=== PATIENT | male | born 1945 | race Caucasian/White ===

== ENCOUNTER 2017-12-05 07:17 | Inpatient (IN) | payer MEDICARE, OTHER ==
[2017-12-05] MEDS ORDERED: Magnesium Hydroxide LIQ* 30 ML UDC PO PRN (15:53)
[2017-12-05] MEDS ORDERED: Senna TAB PO PRN (15:53)
[2017-12-05] MEDS: CMC: Pravastatin (NF) 20 MG TAB PO SCH (17:21)
[2017-12-05] MEDS: Acetaminophen TAB* 325 MG PO PRN (17:22)
[2017-12-05] MEDS: Enoxaparin(*) 40 MG/0.4 ML SYR SUBCUT SCH (20:14)
[2017-12-05] MEDS: Docusate CAP* 100 MG PO SCH (20:15)
[2017-12-05] MEDS: oxyCODONE SR TAB(*) 10 MG TAB.SR PO SCH (21:18)
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
[2017-12-06] MEDS: oxyCODONE TAB* 5 MG TAB PO PRN ×3 (03:12→17:52)
[2017-12-06 05:18] LABS: ABS Basophils 0 10^3/ul (0-0.2); ABS Eosinophils 0.3 10^3/ul (0-0.6); ABS Monocytes 0.5 10^3/ul (0-0.8); ABS Neutrophils 5.3 10^3/ul (1.5-7.7); ABS Nucleated RBC 0 10^3/ul; Eosinophil % 4.3 % (0-6); Hematocrit 35 % (42-52); Hemoglobin 11.9 g/dl (14.0-18.0); Lymphocyte % 14.1 % (25-47); Mean Corpuscular HGB Conc 34 g/dl (31-36); Mean Corpuscular Hemoglobin 33 pg (27-31); Mean Corpuscular Volume 97 fL (80-94); Mean Platelet Volume 7.4 um3 (7.4-10.4); Nucleated Red Blood Cells % 0; Platelet Count 285 10^3/ul (150-450); Red Blood Count 3.62 10^6/ul (4.00-5.40); Red Cell Distribution Width 13 % (10.5-15); White Blood Count 7.1 10^3/ul (3.5-10.8)
[2017-12-06 05:35] LABS: EGFR Non-African American 109.7 (>60)
[2017-12-06] MEDS: Acetaminophen TAB* 325 MG PO PRN (06:24)
[2017-12-06] MEDS: Docusate CAP* 100 MG PO SCH ×2 (08:15→19:56)
[2017-12-06] MEDS: Aspirin EC TAB* 81 MG TAB.EC PO SCH (08:15)
[2017-12-06] MEDS: oxyCODONE SR TAB(*) 10 MG TAB.SR PO SCH ×2 (08:16→19:55)
[2017-12-06] MEDS: CMC: Pravastatin (NF) 20 MG TAB PO SCH (17:15)
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
[2017-12-06] MEDS: Enoxaparin(*) 40 MG/0.4 ML SYR SUBCUT SCH (19:56)
[2017-12-07] MEDS: Acetaminophen TAB* 325 MG PO PRN (05:31)
[2017-12-07] MEDS: Aspirin EC TAB* 81 MG TAB.EC PO SCH (09:04)
[2017-12-07] MEDS: oxyCODONE SR TAB(*) 10 MG TAB.SR PO SCH ×2 (09:04→21:29)
[2017-12-07] MEDS: Docusate CAP* 100 MG PO SCH ×2 (09:04→20:08)
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
[2017-12-07] MEDS: CMC: Pravastatin (NF) 20 MG TAB PO SCH (17:27)
[2017-12-07] MEDS: Enoxaparin(*) 40 MG/0.4 ML SYR SUBCUT SCH (20:08)
[2017-12-07] MEDS: Amoxicillin/Clavulanate TAB* 875 MG PO SCH (20:08)
[2017-12-08] MEDS: Acetaminophen TAB* 325 MG PO PRN ×2 (03:39→20:03)
[2017-12-08 06:04] LABS: ABS Basophils 0 10^3/ul (0-0.2); ABS Eosinophils 0.2 10^3/ul (0-0.6); ABS Lymphocytes 0.8 10^3/ul (1.0-4.8); ABS Monocytes 0.7 10^3/ul (0-0.8); ABS Neutrophils 5.7 10^3/ul (1.5-7.7); ABS Nucleated RBC 0 10^3/ul; Eosinophil % 2.8 % (0-6); Hematocrit 35 % (42-52); Lymphocyte % 10.5 % (25-47); Mean Corpuscular HGB Conc 34 g/dl (31-36); Mean Corpuscular Hemoglobin 33 pg (27-31); Mean Corpuscular Volume 97 fL (80-94); Nucleated Red Blood Cells % 0; Platelet Count 316 10^3/ul (150-450); Red Blood Count 3.61 10^6/ul (4.00-5.40); Red Cell Distribution Width 13 % (10.5-15); White Blood Count 7.4 10^3/ul (3.5-10.8)
[2017-12-08] MEDS: Aspirin EC TAB* 81 MG TAB.EC PO SCH (08:33)
[2017-12-08] MEDS: Docusate CAP* 100 MG PO SCH ×2 (08:33→21:14)
[2017-12-08] MEDS: oxyCODONE SR TAB(*) 10 MG TAB.SR PO SCH ×2 (08:33→21:13)
[2017-12-08] MEDS: Amoxicillin/Clavulanate TAB* 875 MG PO SCH ×2 (08:33→21:14)
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
[2017-12-08] MEDS: CMC: Pravastatin (NF) 20 MG TAB PO SCH (16:52)
[2017-12-08] MEDS: Enoxaparin(*) 40 MG/0.4 ML SYR SUBCUT SCH (20:03)
[2017-12-09 05:32] VITALS: BP 162/91
[2017-12-09] MEDS: Amoxicillin/Clavulanate TAB* 875 MG PO SCH (08:10)
[2017-12-09] MEDS: oxyCODONE SR TAB(*) 10 MG TAB.SR PO SCH (08:11)
[2017-12-09] MEDS: Aspirin EC TAB* 81 MG TAB.EC PO SCH (08:11)
[2017-12-09] MEDS: Docusate CAP* 100 MG PO SCH (08:11)
--- NOTE | 2017-12-10 02:51 | DS ---
CC: Dr. Merrick Ventura * DISCHARGE SUMMARY: DATE OF ADMISSION: 12/05/17 DATE OF DISCHARGE: 12/09/17 DISCHARGE DIAGNOSES: 1. Fracture, left scapula. 2. Fracture, multiple ribs on the left including ribs 2, 3, 4, 5, and possibly 6 and 7 and on the right ribs 3rd and 4th. 3. Pneumonia, left lung. 4. Left pneumothorax. 5. Minor traumatic brain injury. 6. Attention deficit disorder. HISTORY OF ILLNESS AND HOSPITAL COURSE: For complete history of the events leading up to his rehab stay, please see the history and physical dictated by me on 12/05/17. While on the rehab unit, Javon complained of a cough. On the evening of 12/06/17, he was complaining of some trouble breathing and his oxygen saturations had dropped to the high 80s to low 90s. A chest x-ray was ordered, which showed a left lower lobe pneumonia. He was started on Augmentin. The following morning, he felt much better. The patient will continue on Augmentin after discharge for 8 more days. The patient's pain was well managed with OxyContin and oxycodone. The patient did have some mild constipation, which he used laxatives to deal with. Otherwise, the patient was seen by both Physical and Occupational Therapy and made good gains with both disciplines. With physical therapy at the time of admission, the patient required contact guard for transfer, contact guard to ambulate 500 feet. With occupational therapy, he was contact guard for toilet transfers. He required moderate assist for upper and lower body dressing and mini assist for bathing, contact guard for toileting. By the time of discharge, he was independent in most activities. He still required assistance to get a shirt on and to button his pants. Otherwise, he was independent in ambulating and independent with most of his activities of daily living. The patient was discharged to home on 12/09/17. DISCHARGE DIET: Regular vegan. DISCHARGE MEDICATIONS: 1. Augmentin 875 mg twice daily for 8 days. 2. Aspirin 81 mg daily. 3. Oxycodone 5 mg every 4 hours as needed. 4. OxyContin 10 mg every 12 hours. 5. Pravachol 10 mg at 5.00 p.m. daily. 6. Senokot 2 tablets at bedtime. 7. Colace 100 mg twice a day. 8. Milk of magnesia 30 cc every 6 hours as needed. SERVICES AFTER DISCHARGE: The patient will not start physical therapy until his orthopedic surgeon, Dr. Woodard, feels that he is ready to begin outpatient physical therapy. He did not require any home services. FOLLOWUP: Follow up with Dr. Rod Woodard on 12/20/17. He will also follow up with primary care doctor, Dr. Merrick Ventura. [id number]/[facility] #: [id number] [facility]
== END 2017-12-09 11:30 | disposition home or self-care (01) | DRG 860 ==
LOC: PMRU 14:22
PROVIDERS: ADMIT Physical Medicine & Rehabilitation; ATTEND Physical Medicine & Rehabilitation
PROC: F07Z5ZZ Bed Mobility Treatment (ICD-10-PCS; principal; 2017-12-05)
PROC: F07Z9ZZ Gait Training/Functional Ambulation Treatment (ICD-10-PCS; 2017-12-05)
PROC: F07Z8ZZ Transfer Training Treatment (ICD-10-PCS; 2017-12-05)
PROC: F08Z0ZZ Bathing/Showering Techniques Treatment (ICD-10-PCS; 2017-12-05)
PROC: F08Z1ZZ Dressing Techniques Treatment (ICD-10-PCS; 2017-12-05)
PROC: F08Z3ZZ Feeding/Eating Treatment (ICD-10-PCS; 2017-12-05)
DX: S22.43XD Multiple fractures of ribs, bilateral, subsequent encounter for fracture with routine healing (principal); J18.9 Pneumonia, unspecified organism; S42.102D Fracture of unspecified part of scapula, left shoulder, subsequent encounter for fracture with routine healing; V49.88XD Car occupant (driver) (passenger) injured in other specified transport accidents, subsequent encounter; S06.9X9D Unspecified intracranial injury with loss of consciousness of unspecified duration, subsequent encounter; I48.91 Unspecified atrial fibrillation; F98.8 Other specified behavioral and emotional disorders with onset usually occurring in childhood and adolescence; N40.0 Benign prostatic hyperplasia without lower urinary tract symptoms; Z79.82 Long term (current) use of aspirin; Z79.899 Other long term (current) drug therapy
CPT/HCPCS: 36415; 71046; 80053; 85025; A9270-GY; J1650

== ENCOUNTER 2018-01-15 08:10 | Emergency (ER) | payer OTHER ==
--- OUTSIDE RECORDS SUMMARY | 2018-01-15 08:14 | XMS REPORT ---
:1945 External Reference #:[id number] Author Organization [facility] Address [address] [place] [address] [place] [address] Phone [phone] Care Team Providers Name Role Phone Merrick Ventura MD Care Team Information Bike Technician Unavailable Merrick Ventura MD Primary Care Physician Unavailable Payers Type Date Identification Numbers Payment Provider Subscriber Health Maintenance Policy Number: Medicare Blue Ppo Javon Robins [facility] (O) [id number] Group Number: [id number] [address] [address] PayID: [id number] NOEMI Lee [id number] Workers Onset: Policy Number: Teo Nguyen Compensation [id number] Robins Group Number: [id number] [address] [address] Group Name: [place] [address] PayID: [id number] Problems Description No Active Problems Family History Date Family Member(s) Problem(s) Comments General No Current Problems Social History Type Date Description Comments Lives With Spouse Occupation [employer] ETOH Use Drinks 2 Alcoholic Beverages Per Week Smoking Patient has never smoked Exercise Type/Frequency Exercises regularly General Hx Text Lives in [facility], works at [employer] Allergies, Adverse Reactions, Alerts Date Description Reaction Status Severity Comments 11/26/2012 Doxycycline active GI upset Medications Medication Date Status Form Strength Qnty SIG Indications Ordering Provider Aspirin Ec Active Tablets DR 81mg 1 by Unknown 000 mouth every day Pravastatin Active 10mg 1 tablet Unknown Sodium 000 po daily Lecithin Soya Active Granules 1 tbsp Unknown 000 in blend drink daily Dmae 00/00/0 Active 130mg 2 tablet Unknown 000 po daily Am Brain Essense Active 2 tablet Unknown 000 po daily Am No Active Hx Unknown Medications 015 - 015 Adderall Hx Tablets 20mg 60tabs 1 po bid Unknown 000 - 015 Strattera Hx Capsules 60mg 1 po qd Unknown 000 - 015 Vital Signs Date Vital Result Comment 12/18/2017 Height 71 inches 5'11" Weight 177.50 lb Heart Rate 70 /min BP Systolic 124 mmHg BP Diastolic 62 mmHg Respiratory Rate 16 /min Body Temperature 98.3 F Pain Level 3 BMI (Body Mass Index) 24.8 kg/m2 09/23/2014 Height 71 inches 5'11" Weight 181.12 lb with sandals Heart Rate 66 /min BP Systolic Sitting 128 mmHg La reg cuff BP Diastolic Sitting 80 mmHg La reg cuff BP Systolic Standing 122 mmHg La reg cuff BP Diastolic Standing 80 mmHg La reg cuff Respiratory Rate 16 /min BMI (Body Mass Index) 25.3 kg/m2 Ejection Fraction 55-60% date 07/07/14 11/26/2012 Height 71 inches 5'11" Weight 173.00 lb Heart Rate 68 /min BP Systolic 124 mmHg BP Diastolic 80 mmHg Body Temperature 98.5 F BMI (Body Mass Index) 24.1 kg/m2 Results Description No Information Procedures Date CPT Code Description Status 09/23/2014 74289 EKG Tracing & Interpretation Completed 07/08/2014 80476 Stress ECHO Interpretation/Report Hospital Completed 07/08/2014 99967 Treadmill Interp/Report Only Completed 07/08/2014 51437 Stress Test Supervsn W/Out I/R Completed 07/07/2014 42931 ECHO Transthorasic Realtime 2D W Doppler & Color Flow Completed Hosp 07/07/2014 37282 EKG, Interpretation Only Completed Encounters Type Date Location Provider CPT E/M Dx Office Visit 09/23/2014 [facility] Sebastian Ordonez 18[address] 427.89 12:45p Garment Worker [facility] [place]hadra Office Visit 07/08/2014 [facility] Shelby Altman, 918[address] 427.89 1:14p Hospitalists Khadra 600.00 314.01 Office Visit 07/07/2014 1:13p [facility], Sudhakar Wisdom M.D. 03677 427.89 Hospitalists 426.7 600.00 314.01 Office Visit 07/07/2014 3:56p [facility]done[facility], 47159 786.50 Vinod Gaviria 427.0 790.99 Office Visit 11/26/2012 4:00p [facility] Som Herrera, 13916 088.81 Infectious Diseases Khadra Plan of Care Future Appointment(s):01/03/2018 2:45 pm - Bacilio Garcia MD at [facility]..12/18/2017 - Bacilio Garcia, MDS22.42xA Multiple fractures of ribs, left side, init for clos fxFollow up:Follow up: [facility] Pain in left shoulderNew Xrays:Scapula Left
--- OUTSIDE RECORDS SUMMARY | 2018-01-15 08:14 | XMS REPORT ---
:1945 External Reference #:[id number] Author Organization [facility] [email or web address] [facility] Address [address] [place] [address] [place] [address] Phone [phone] Care Team Providers Name Role Phone Merrick Ventura MD Care Team Information Senior Buyer Unavailable Merrick Ventura MD Primary Care Physician Unavailable Payers Type Date Identification Numbers Payment Provider Subscriber Health Maintenance Policy Number: Medicare Blue Ppo Javon Robins [facility] (O) [id number] Group Number: [id number] [address] [address] PayID: [id number] RosaNOEMI [place] [id number] Workers Onset: 11/30/2017 Policy Number: Teo Nguyen Compensation [id number] Julienne Group Number: [id number] 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 Use Drinks 2 Alcoholic Beverages Per Week Smoking Patient is a former smoker Smoking Patient is a former smoker quit 1968 Daily Caffeine Does Not Consume Caffeine Daily Caffeine Does Not Consume Caffeine occ caffeine Exercise Type/Frequency Exercises regularly General Hx Text Lives in [facility], works at [employer] Allergies, Adverse Reactions, Alerts Date Description Reaction Status Severity Comments 11/26/2012 Doxycycline active GI upset Medications Medication Date Status Form Strength Qnty SIG Indications Ordering Provider Aspirin Ec 00// Active Tablets DR 81mg 1 by mouth Unknown 0000 every day Pravastatin / Active 10mg 1 tablet po Unknown Sodium 0000 daily Dmae / Active 130mg 2 tablet po Unknown 0000 daily Am (12/28/17 pt not presently taking) Brain Essense / Active 2 tablet po Unknown 0000 daily Am 12/28/17 not taking at present time Ibuprofen / Active Tablets 600mg 1 tab by Unknown 0000 mouth tid as needed Gabapentin / Active Capsules 100mg 4 caps tid Unknown 0000 [place] 3 / Active Capsules 1000mg 1 by mouth Unknown 0000 every day (not taking at present time) [place] / Active Paste 1 po tid Unknown 0000 No Active 09/23/ Hx Unknown Medications 2014 - 2014 Adderall / Hx Tablets 20mg 60tabs 1 po bid Unknown - 2014 Strattera / Hx Capsules 60mg 1 po qd Unknown - 2014 Lecithin Soya / Hx Granules 1 tbsp in Unknown 0000 - blend drink 2018 Oxycontin / Hx Tab ER 12H 10mg 1 tab by Unknown 0000 - Abuse-Det mouth every hrs day as 2018 needed pain Cialis / Hx Tablets 10mg 1-2 tabs by Unknown 0000 - mouth 20 12/27/ prior 2018 to intercourse Vital Signs Date Vital Result Comment 01/08/2018 Height 71 inches 5'11" Weight 177.00 lb Heart Rate 72 /min BP Systolic 112 mmHg BP Diastolic 68 mmHg Respiratory Rate 12 /min Pain Level 0 BMI (Body Mass Index) 24.7 kg/m2 12/28/2017 Height 71 inches 5'11" Weight 176.00 lb w/shoes Heart Rate 86 /min BP Systolic Sitting 122 mmHg Lue reg cuff BP Diastolic Sitting 70 mmHg Lue reg cuff BMI (Body Mass Index) 24.5 kg/m2 Ejection Fraction 55-60% Echo 07/07/14 12/18/2017 Height 71 inches 5'11" Weight 177.50 [...] Information Procedures Date CPT Code Description Status 12/28/2017 08232 EKG Tracing & Interpretation Completed 09/23/2014 71346 EKG Tracing & Interpretation Completed 07/08/2014 50362 Stress ECHO Interpretation/Report Hospital Completed 07/08/2014 32620 Treadmill Interp/Report Only Completed 07/08/2014 81511 Stress Test Supervsn W/Out I/R Completed 07/07/2014 51521 ECHO Transthorasic Realtime 2D W Doppler & Color Flow Completed Hosp 07/07/2014 70930 EKG, Interpretation Only Completed Encounters Type Date Location Provider CPT E/M Dx Office Visit 12/18/2017 [facility] Bacilio Garcia, [address] S22.42xA 1:15p Of Riya BAKER S22.42xA M25.512 V43.52xA V43.52xA S49.92xA S49.92xA Office Visit 09/23/2014 12:45p [facility] Sebastian Ordonez, [address]58[address] 427.89 Vinod [facility] Khadra Office Visit 07/08/2014 1:14p [facility] Shelby Altman, [address] 427.89 Assoc,pc Hospitalists Khadra 600.00 314.01 Office Visit 07/07/2014 1:13p [facility] Sudhakar Wisdom M.D. 05644 427.89 Hospitalists 426.7 600.00 314.01 Office Visit 07/07/2014 3:56p [facility] Grey Ordonez, 63172 786.50 Vinod Gaviria 427.0 790.99 Office Visit 11/26/2012 4:00p [facility] Courtney Herrera, 60119 088.81 Infectious Diseases Khadra Plan of Care Future Appointment(s):01/30/2018 2:00 pm - Bacilio Garcia MD at [facility].02/16/2018 4:20 pm - Jamaal Ashford M.D. at [facility]01/30/2018 11:00 am - [place] Schedule at [facility]01/30/2018 11:30 am - Jamaal Ashford M.D. at [facility]01/23/2018 1:30 pm - Nurse Visit cc at [facility]01/22/2018 3 :00 pm - Nurse Visit cc at [facility]01/10/2018 9:00 am - [place] Schedule at [facility]02/08/2018 7:30 am - Donna Balderrama MD at [facility]01/08/2018 - Bacilio Garcia, MDS22.42xA Multiple fractures of ribs, left side, init for clos fxNew Therapy: Physical TherapyFollow up:Follow up: 3 fressR85.512 Pain in left shoulder
[2018-01-15 08:18] VITALS: BP 133/85
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
--- NOTE | 2018-01-15 09:02 | RAD ---
Indication: Cough. 2 views of the chest including dual energy PA views demonstrate no mediastinal shift. Heart is of normal size and configuration. There is left pleural effusion with left basilar atelectasis. When compared to previous exam of December 07, 2017 left basilar atelectasis is persistent. IMPRESSION: Left pleural effusion with left basilar atelectasis. This is similar in appearance to that seen on December 07, 2017.
== END 2018-01-15 09:31 | disposition home or self-care (01) ==
LOC: UCEAST 08:10
DX: J90 Pleural effusion, not elsewhere classified (principal); J98.11 Atelectasis; R06.00 Dyspnea, unspecified; R09.81 Nasal congestion
CPT/HCPCS: 71046; 99212; G0463

== ENCOUNTER 2018-08-17 20:59 | Emergency (ER) | payer MEDICARE ==
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
[2018-08-17 22:08] LABS: ABS Basophils 0 10^3/ul (0-0.2); ABS Eosinophils 0.1 10^3/ul (0-0.6); ABS Lymphocytes 0.7 10^3/ul (1.0-4.8); ABS Monocytes 0.5 10^3/ul (0-0.8); ABS Neutrophils 13.5 10^3/ul (1.5-7.7); ABS Nucleated RBC 0 10^3/ul; Eosinophil % 0.4 %; Hematocrit 40 % (36-46); Hemoglobin 13.2 g/dL (14.0-18.0); Lymphocyte % 4.8 %; Mean Corpuscular HGB Conc 33 g/dL (31-36); Mean Corpuscular Hemoglobin 32 pg (27-31); Mean Corpuscular Volume 96 fL (80-94); Mean Platelet Volume 7.4 fL (7.4-10.4); Nucleated Red Blood Cells % 0; Platelet Count 237 10^3/uL (150-450); Red Blood Count 4.09 10^6 /uL (4.18-5.48); Red Cell Distribution Width 13 % (10.5-15); White Blood Count 14.8 10^3/uL (3.5-10.8)
[2018-08-17 22:21] LABS: Albumin 3.6 g/dL (3.2-5.2); Calcium 8.8 mg/dL (8.6-10.3); Potassium 4.1 mmol/L (3.5-5.0); Total Bilirubin 0.4 mg/dL (0.2-1.0)
[2018-08-17 22:27] LABS: Albumin/Globulin Ratio 1.3 (1-3); BUN/Creatinine Ratio 29.1 (8-20); EGFR Non-African American 96.7 (>60); Globulin 2.8 g/dL (2-4); Total Protein 6.4 g/dL (6.4-8.9)
[2018-08-17 23:43] LABS: Urine Appearance Cloudy; Urine Bilirubin Negative (Negative); Urine Blood Negative (Negative); Urine Color Amber; Urine Glucose Negative (Negative); Urine Ketones Negative (Negative); Urine Nitrite Negative (Negative); Urine Protein Negative (Negative); Urine Urobilinogen Negative (Negative)
[2018-08-18 01:19] VITALS: BP 120/69
== END 2018-08-18 01:18 | disposition home or self-care (01) ==
LOC: ED 20:59
DX: R55 Syncope and collapse (principal); E78.00 Pure hypercholesterolemia, unspecified; N40.0 Benign prostatic hyperplasia without lower urinary tract symptoms; Z98.52 Vasectomy status
CPT/HCPCS: 36415; 70450; 71046; 80053; 81003; 83605; 84484; 85025; 93005; 99283